=== PATIENT | male | born 1995 | race African-American/Black ===

== ENCOUNTER 2019-02-12 09:36 | Emergency (ER) | payer MEDICAID ==
[~2019-02-12] VITALS: Ht 167.6 cm; Wt 75.0 kg
[2019-02-12 09:40] VITALS: BP 119/55
--- NOTE | 2019-02-12 11:07 | NUR ---
APPLIED VOLAR SPLINT TO FINGER TIPS. NEUROVASACULAR INTACT PRIOR TO APPLICATION. NEUROVASCULAR INTACT POST APPLICATION. INSTRUCTED PATIENT IN SPLINT CARE. INSTRUCTED PATIENT TO RETURN TO ER IF LOSS OF SENSATION TO HAND IN ANY CAPACITY OCCURS.
== END 2019-02-12 11:09 | disposition home or self-care (01) ==
LOC: ED 11:03
DX: S60.021A Contusion of right index finger without damage to nail, initial encounter (principal); S60.031A Contusion of right middle finger without damage to nail, initial encounter; S60.041A Contusion of right ring finger without damage to nail, initial encounter; G89.11 Acute pain due to trauma; X58.XXXA Exposure to other specified factors, initial encounter; Y93.89 Activity, other specified; Y92.098 Other place in other non-institutional residence as the place of occurrence of the external cause; Y99.8 Other external cause status
CPT/HCPCS: 99283

== ENCOUNTER 2020-08-13 10:09 | Emergency (ER) | payer MEDICAID ==
[~2020-08-13] VITALS: Ht 170.2 cm; Wt 96.8 kg
[2020-08-13 10:47] VITALS: BP 146/66
== END 2020-08-13 16:37 ==
LOC: ED 13:20
DX: S60.021A Contusion of right index finger without damage to nail, initial encounter (principal); W22.8XXA Striking against or struck by other objects, initial encounter; Y93.89 Activity, other specified; Y92.009 Unspecified place in unspecified non-institutional (private) residence as the place of occurrence of the external cause; Y99.8 Other external cause status
CPT/HCPCS: 99283